=== PATIENT | female | born 1995 | race Caucasian/White ===

== ENCOUNTER 2020-03-21 23:35 | Emergency (ER) | payer MEDICARE, MEDICAID, SELFPAY ==
[2020-03-21 23:37] VITALS: BP 126/84; PULSE 105; RESP 18; TEMP 36.4; O2SAT 99
[2020-03-22 01:00] LABS: Basophils Percent Auto 0.2 % (0.2-1.2); Eosinophils Absolute Auto 0.1 K/mm3 (0-0.3); Eosinophils Percent Auto 0.4 % (0-4.4); Hematocrit 49.7 % (37.0-47.0); Hemoglobin 16.7 g/dL (12.0-15.0); Immature Granulocyte Absolute 0.04 K/mm3 (0.00-0.031); Immature Granulocyte Percent A 0.3 % (0-0.5); Lymphocytes Absolute Auto 1.54 K/mm3 (0.9-3.2); Lymphocytes Percent Auto 12.1 % (18.3-44.2); Mean Corpuscular HGB Conc 33.6 g/dl (32-36); Mean Corpuscular Volume 86.3 fl (80-100); Mean Platelet Volume 8.9 fl (7.4-10.4); Monocytes Absolute Auto 0.5 K/mm3 (0.1-0.6); Monocytes Percent Auto 3.9 % (2.6-8.5); Neutrophils Absolute Auto 10.5 K/mm3 (1.3-6.7); Neutrophils Percent Auto 83.1 % (45.5-73.1); Platelet Count Result 396 k/mm3 (150-375); Red Blood Count 5.76 M/mm3 (4.2-5.4); Red Cell Distribution Width 12.9 % (11.5-14.5); White Blood Count 12.7 K/mm3 (4.5-10.0)
[2020-03-22 01:17] LABS: Add Urine Microscopic? YES; Appearance Urine Clear (Clear); Bacteria Urine Trace /hpf; Bilirubin Urine Negative (Negative); Blood Urine Negative (Negative); Color Urine Yellow (Yellow); Glucose Urine UA Negative (Negative); Ketones Urine 1+ mg/dL (Negative); Leukocyte Esterase Ur 2+ LEU/UL (Negative); Mucus Urine Heavy /lpf; Nitrate Urine Negative (Negative); Protein Urine 2+ mg/dL (Negative); Squamous Epithelial Cell Urine Moderate /hpf (Few); Urobilinogen Urine Negative mg/dL (<2.0)
[2020-03-22 01:21] LABS: Alanine Aminotransferase 19 U/L (4-35); Albumin Level 4.9 g/dL (3.5-5.1); Alkaline Phosphatase 81 U/L (38-126); Anion Gap 14 mmol/L (8-16); Aspartate Amino Transferase 24 U/L (14-36); Bilirubin,Total 0.6 mg/dL (0.2-1.3); Blood Urea Nitrogen 14 mg/dL (7-17); Calcium 10.1 mg/dL (8.4-10.2); Carbon Dioxide 22 mmol/L (22-30); Chloride 110 mmol/L (98-107); Estimated Glomerular Filt Rate > 60; Glucose 131 mg/dL (65-105); Lipase 139 U/L (23-300); Potassium 4.4 mmol/L (3.4-5.0); Sodium 146 mmol/L (137-145)
[2020-03-22 01:31] LABS: Specific Grav Ur 1.031 (1.001-1.035)
[2020-03-22 01:56] VITALS: BP 128/68; PULSE 98; RESP 18; O2SAT 99
[2020-03-22] MEDS: ONDANSETRON INJ 4 MG/2 ML VIAL IV PUSH (03:51)
[2020-03-22] MEDS: LACTATED RINGERS 1,000 ML 999 ML IV CONT (03:59)
--- NOTE | 2020-03-22 04:04 | ED.NAVMDI ---
HPI - Nausea/Vomiting/Diarrhea General Chief complaint: Nausea/Vomiting/Diarrhea Stated complaint: nausea & vomiting Time Seen by Provider: 03/22/20 03:31 Source: patient Mode of arrival: ambulatory Limitations: no limitations History of Present Illness HPI Narrative: This patient is a 24 year old female who presents for evaluation of nausea and vomiting. Her sister/guardian is at bedside providing history. She states patient frequent has issues with nausea and vomiting. She reports most of her lift patient has episodes in which she thinks food gets stuck and she has nausea and vomiting. She has never been evaluated for her symptoms. They just assume that is what is happening. Yesterday around noon patient was eating tacos and then she began having nausea and vomiting. Patient has had continuous vomiting since. Patient states she feels like something is stuck in her throat. She is still vomiting. She denies any abdominal pain, fever or diarrhea. Related Data Allergies Allergy/AdvReac Type Severity Reaction Status Date / Time No Known Allergies Allergy Unknown Unverified 12/12/17 16:05 Review of Systems Review of Systems: All systems reviewed & are unremarkable except as noted in HPI and below PMFSH Past Medical History Medical History (Updated 03/22/20 @ 06:23 by Magda Messer MD) Cognitive developmental delay Surgical History Surgical History (Updated 03/22/20 @ 04:09 by Magda Messer MD) No significant past surgical history Social History Social History (Updated 03/22/20 @ 04:09 by Magda Messer MD) Smoking status: Never smoker Exam Const: General: no acute distress and alert Orientation/consciousness: patient oriented x3 HENMT: Head: atraumatic Face and sinus: face symmetric Mouth: Yes Normal oral and palatal mucosa present, Yes lip normal, Yes tongue normal, Yes oropharynx normal and Yes moist mucous membranes Throat: posterior oropharynx normal, tonsils normal and uvula midline Eyes: EOM: EOMs intact bilaterally Resp: Effort & Inspection: normal respiratory effort Auscultation: clear to auscultation bilaterally Cardio: Rate: regular rate Rhythm: regular rhythm Heart sounds: no murmurs GI: GI Palp: Yes Soft to palpation, No Tenderness to palpation present (GI), No Guarding due to palpation present (GI) and No Rigid due to palpation Auscultation: normal bowel sounds Neuro: General: patient oriented x3 and moves all extremities Extrem: General: normal to inspection Course Reevaluation(s) Reevaluation #1: PAtient was able to drink 2 cups of water without vomiting. She states she does not feel like anything is stuck. Her sister reports she is scheduled to get upper endoscopy and colonoscopy with Dr. Blake Date: 03/22/20 Time: 06:18 Vital Signs Vital signs: Vital Signs Temperature 97.5 F L 03/21/20 23:37 Pulse Rate 105 H 03/21/20 23:37 Respiratory Rate 18 03/21/20 23:37 Blood Pressure 126/84 03/21/20 23:37 Pulse Oximetry 99 03/21/20 23:37 Temperature 98 F 03/22/20 06:39 Pulse Rate 97 03/22/20 06:39 Respiratory Rate 18 03/22/20 06:39 Blood Pressure 129/84 03/22/20 06:39 Pulse Oximetry 98 03/22/20 06:39 MDM - Nausea/Vomiting/Diarrhea Lab Data Attestation: I reviewed the patient's lab results. Result diagrams: 03/22/20 00:47 03/22/20 00:47 Labs: Lab Results 03/22/20 03/22/20 03/22/20 Range/Units 00:47 00:47 00:47 WBC 12.7 H (4.5-10.0) K/mm3 RBC 5.76 H (4.2-5.4) M/mm3 Hgb 16.7 H (12.0-15.0) g/dL Hct 49.7 H (37.0-47.0) % MCV 86.3 (80-100) fl MCH 29.0 (26-34) pg MCHC 33.6 (32-36) g/dl RDW 12.9 (11.5-14.5) % Plt Count 396 H (150-375) k/mm3 MPV 8.9 (7.4-10.4) fl Immature Gran % (Auto) 0.3 (0-0.5) % Neut % (Auto) 83.1 H (45.5-73.1) % Lymph % (Auto) 12.1 L (18.3-44.2) % [place] % (Auto) 3.9 (2.6-8.5) % Eos % (Auto)
[2020-03-22] MEDS: GLUCAGON FOR INJ 1 MG VIAL IV PUSH (04:16)
[2020-03-22] MEDS: METOCLOPRAMIDE HCL INJ 10 MG/2 ML VIAL IV PUSH (05:06)
[2020-03-22 06:39] VITALS: BP 129/84; PULSE 97; RESP 18; TEMP 36.6; O2SAT 98
== END 2020-03-22 06:41 | disposition home or self-care (01) ==
PROVIDERS: Emergency Provider General Practice; PCP Internal Medicine
DX: N39.0 Urinary tract infection, site not specified (principal); E86.0 Dehydration; R11.2 Nausea with vomiting, unspecified; R62.50 Unspecified lack of expected normal physiological development in childhood
CPT/HCPCS: 36415; 80053; 81001; 81025; 83690; 85025; 87077; 87086; 87088; 96361; 96374; 96375; 99284; J1610; J2405; J2765; J7120

== ENCOUNTER 2020-08-29 17:51 | Emergency (ER) | payer MEDICARE, MEDICAID, SELFPAY ==
--- NOTE | ~2020-08-29 | XR_ITS ---
XR ankle RT min 3V 08/29/2020 18:16 INDICATION: Right ankle pain PROCEDURE: 4 views right ankle COMPARISON: No prior studies for comparison. FINDINGS: Fracture, dislocation or subluxation is not identified. There is anterior and lateral soft tissue swelling. No foreign bodies are identified. IMPRESSION: 1: NO ACUTE BONE OR JOINT ABNORMALITY IDENTIFIED. Reviewed, dictated and finalized at location A.
[2020-08-29 18:00] VITALS: BP 127/81; PULSE 85; RESP 18; TEMP 37; O2SAT 99
--- NOTE | 2020-08-29 18:02 | ED.LOWEXIN ---
HPI - Extremity Injury (Lower) General Chief Complaint: Extremity Injury, Lower Stated Complaint: rt ankle injury Time Seen by Provider: 08/29/20 18:19 Source: patient and RN notes reviewed Mode of arrival: ambulatory Limitations: no limitations History of Present Illness HPI Narrative: 24-year-old female presents concern for right ankle injury. Reports prior to arrival she was walking down a flight of stairs and missed a step, rolling her ankle. She reports minimal pain at rest, pain with weightbearing. Reports lateral ankle swelling. Denies decreased strength, sensation, range of motion. MD complaint: ankle injury Related Data Home Medications Medication Instructions Recorded Confirmed calcium carbonate-vitamin D3 1 tablet PO BID 08/29/20 08/29/20 medroxyprogesterone 150 mg IM Q3M 08/29/20 08/29/20 omeprazole 40 mg PO DAILY 08/29/20 08/29/20 Allergies Allergy/AdvReac Type Severity Reaction Status Date / Time No Known Allergies Allergy Unknown Verified 08/29/20 18:00 Review of Systems Review of Systems: Narrative: CONSTITUTIONAL: Denies malaise, chills, sweats, or fever. CARDIOVASCULAR: Denies chest pain, palpitations, or edema. RESPIRATORY: Denies cough or dyspnea. SKIN: Denies laceration, abrasion MUSCULOSKELETAL: Reports right ankle pain, swelling, bruising NEUROLOGIC: Denies numbness, weakness All systems reviewed & are unremarkable except as noted in HPI and below PMFSH Past Medical History Medical History (Updated 08/29/20 @ 18:29 by Татьяна Tucker NP) Cognitive developmental delay Surgical History Surgical History (Updated 03/22/20 @ 04:09 by Magda Messer MD) No significant past surgical history Social History Social History (Updated 03/22/20 @ 04:09 by Magda Messer MD) Smoking status: Never smoker Comments At time of signature, agree with nursing past medical, surgical, social and family history. There is no relevant family history pertinent to the presenting complaint Exam Narrative: Exam Narrative: GENERAL: Well-appearing, well-nourished, and in no acute distress. HEAD: Normocephalic, atraumatic. EYES: PERRLA, conjunctivae clear NECK: Supple. CHEST: Speaks in full sentences. No respiratory distress. HEART: Regular rate and rhythm. Normal and equal peripheral pulses. EXTREMITIES: Right ankle, foot, digits have normal strength and sensation, normal range of motion. No edema or ecchymosis. 5/5 strength with ankle and digit flexion and extension. Normal sensation with sensitivity to light touch and pain. No point tenderness. No open wounds, no skin tenting, no devitalized tissue or atrophy, no trophic changes, no obvious deformity, alignment normal, nearby joints and structures intact. Distal pulses palpable and equal bilaterally, skin warm, dry, pink. Capillary refill less than 3 seconds. SKIN: Warm, dry, no rash. NEURO: Alert and oriented x3. PSYCH: Normal mood and affect Course Course Emergency Course: Patient is aware of diagnosis, understands and agrees to treatment plan. Anticipatory guidance given. Patient agrees to follow-up as directed and is aware of reasons to seek care at the emergency department. Portions of this record may have been created with voice recognition software Vital Signs Vital signs: Vital Signs Temperature 98.6 F 08/29/20 18:00 Pulse Rate 85 08/29/20 18:00 Respiratory Rate 18 08/29/20 18:00 Blood Pressure 127/81 08/29/20 18:00 Pulse Oximetry 99 08/29/20 18:00 Temperature 98.6 F 08/29/20 18:00 Pulse Rate 85 08/29/20 18:00 Respiratory Rate 18 08/29/20 18:00 Blood Pressure 127/81 08/29/20 18:00 Pulse Oximetry 99 08/29/20 18:00 Reviewed. MDM - Extremity Injury (Lower) MDM Narrative Medical decision making narrative: Patients injury and pain is consistent with musculoskeletal etiology. No signs of neurological or vascular compromise on exam. Compartments and tissues are soft without signs of compartment sy
--- NOTE | 2020-08-29 18:17 | PC.NURSE ---
PT TAKEN TO ROOM AND RADIOLOGY IN WHEELCHAIR
== END 2020-08-29 18:30 | disposition home or self-care (01) ==
PROVIDERS: Emergency Provider Nurse Practitioner; PCP Internal Medicine
DX: S93.401A Sprain of unspecified ligament of right ankle, initial encounter (principal); S96.911A Strain of unspecified muscle and tendon at ankle and foot level, right foot, initial encounter; W10.9XXA Fall (on) (from) unspecified stairs and steps, initial encounter; F79 Unspecified intellectual disabilities; K21.9 Gastro-esophageal reflux disease without esophagitis
CPT/HCPCS: 73610; 99213; G0463